=== PATIENT | male | born 1950 | race Caucasian/White ===

== ENCOUNTER 2019-03-15 08:20 | Day surgery (SDC) | payer MEDICARE ==
[2019-03-15 09:31] LABS: ADD MAN DIFF? NO
[2019-03-15 09:44] LABS: BASOPHIL # 0.1 10^3/ul (0.0-0.1); BASOPHILS % 0.6 % (0.0-2.0); EOSINOPHILS # 0.6 10^3/ul (0.0-0.5); EOSINOPHILS % 6.3 % (0.0-7.0); HEMATOCRIT 47.2 % (42.0-52.0); HEMOGLOBIN 15.2 g/dl (14.0-18.0); LYMPHOCYTES # 3.8 10^3/ul (0.8-2.9); MEAN CORPUSCULAR HEMOGLOBIN 28.4 pg (29.0-33.0); MEAN CORPUSCULAR HGB CONC 32.2 g/dl (32.0-37.0); MEAN CORPUSCULAR VOLUME 88.1 fl (82.0-101.0); MEAN PLATELET VOLUME 11.7 fl (7.4-10.4); MONOCYTES % 10.1 % (0.0-11.0); NEUTROPHIL # 4.1 10^3/ul (1.6-7.5); NEUTROPHILS % 42.7 % (39.0-77.0); PLATELET COUNT 157 10^3/UL (140-415); RED BLOOD COUNT 5.36 10^6/ul (4.70-6.10); RED CELL DISTRIBUTION WIDTH 14.6 % (11.5-14.5)
[2019-03-15 09:44] LABS: WHITE BLOOD COUNT 9.6 10^3/ul (4.8-10.8)
[2019-03-15 09:55] LABS: INR 0.93; PROTIME 12.6 Sec (11.9-14.9)
[2019-03-15 09:56] LABS: PARTIAL THROMBOPLASTIN TIME 25.2 Sec (23.0-35.0)
[2019-03-15 09:59] LABS: ANION GAP 9 (5-13); CALCIUM 9.1 mg/dl (8.4-10.2); CARBON DIOXIDE 29 mmol/L (21-31); CHLORIDE 104 mmol/L (97-110); CHOL/HDL RATIO 4.9 RATIO; CHOLESTEROL 169 mg/dl (100-200); CREATININE 1.12 mg/dl (0.61-1.24); Estimated GFR > 60 mL/min (>60); GLUCOSE 110 mg/dl (70-220); HDL CHOLESTEROL 34 mg/dl (30-78); LDL CHOLESTEROL,CALCULATED 106 mg/dl; POTASSIUM 4.8 mmol/L (3.5-5.1); SODIUM 142 mmol/L (135-144); TRIGLYCERIDES 145 mg/dl (0-149)
[2019-03-15] MEDS ORDERED: SOD CHLORIDE 0.45% 1,000 ML IV (10:00)
[2019-03-15 10:08] LABS: BLOOD UREA NITROGEN 23 mg/dl (7-20)
[2019-03-15] MEDS: FAMOTIDINE 20 MG TAB PO (10:31)
[2019-03-15] MEDS: DIAZEPAM 5 MG TAB PO (10:31)
[2019-03-15] MEDS: DIPHENHYDRAMINE 50 MG CAP PO (10:31)
[2019-03-15] MEDS ORDERED: LIDOCAINE 1% (MDV) 20 ML INJ (11:09)
[2019-03-15] MEDS ORDERED: IODIXANOL LOCM 100 ML BTL (11:09)
[2019-03-15] MEDS ORDERED: HEPARIN 1000 UNITS/ML 10 ML INJ (11:10)
[2019-03-15] MEDS ORDERED: NITROGLYCERIN (IC) 100 MCG/ML INJ (11:10)
[2019-03-15] MEDS ORDERED: FENTAnyl 50 MCG/ML VIAL (11:10)
[2019-03-15] MEDS ORDERED: VERAPAMIL 5 MG INJ (11:10)
[2019-03-15] MEDS ORDERED: MIDAZOLAM 1 MG/ML 2 ML INJ (11:10)
[2019-03-15] MEDS ORDERED: AL HYDROX/MG HYDROX/SIMETH 30 ML CUP PO (12:00)
[2019-03-15] MEDS ORDERED: ONDANSETRON 4 MG INJ IV (12:00)
[2019-03-15] MEDS: SOD CHLORIDE 0.9% 1,000 ML IV (12:40)
[2019-03-15] MEDS: ACETAMINOPHEN 325 MG TAB PO (13:52)
== END 2019-03-15 15:20 | disposition home or self-care (01) ==
LOC: CCL 08:20 → SDS 08:20 → CCL 15:20
DX: I25.10 Atherosclerotic heart disease of native coronary artery without angina pectoris (principal); I10 Essential (primary) hypertension; E78.5 Hyperlipidemia, unspecified; I34.0 Nonrheumatic mitral (valve) insufficiency
CPT/HCPCS: 71045; 80048; 80061; 82962; 85025; 85610; 85730; 93005; 93458